=== PATIENT | female | born 1990 | race Caucasian/White ===

== ENCOUNTER 2017-01-27 21:36 | Emergency (ER) | payer MEDICARE ==
[~2017-01-27] VITALS: Ht 152.4 cm; Wt 77.1 kg
[2017-01-27 21:39] VITALS: BP 148/83
[2017-01-27] MEDS ORDERED: KETOROLAC 30 MG/ML VIAL IM ONE (22:45)
[2017-01-27 23:40] LABS: CALCIUM 9.2 mg/dL (8.5-10.1); CARBON DIOXIDE 27.5 mmol/L (21-32); CREATININE 0.7 mg/dL (0.6-1.3); POTASSIUM 3.5 mmol/L (3.5-5.1)
[2017-01-27] MEDS ORDERED: NACL 0.9% 1,000 ML IV ONE (23:50)
[2017-01-28 02:00] VITALS: BP 120/86
== END 2017-01-28 02:01 | disposition home or self-care (01) ==
LOC: MED 21:36
DX: R07.89 Other chest pain (principal)
CPT/HCPCS: 36415; 71010; 71275; 80048; 81025; 85379; 93005; 96360; 96361; 96372; 99285; J1885; J7030; Q9967

== ENCOUNTER 2018-06-29 09:34 | Emergency (ER) | payer BC, MEDICAID, MEDICARE ==
[~2018-06-29] VITALS: Ht 152.4 cm; Wt 76.2 kg
[2018-06-29 09:36] VITALS: BP 157/81
--- NOTE | 2018-06-29 09:42 | NUR ---
27 Y/F BIB SELF C/O RIGHT FOOT FUNGAL X 2 DAYS . PT STATES SHE PULLED OUT HER NAIL X 2 DAYS AND THENS WHEN IT GOT INFECTED. PMH: NONE RX: NONE
[2018-06-29 09:51] VITALS: BP 157/81
--- NOTE | 2018-06-29 09:51 | NUR ---
Patient discharged with v/s stable. Written and verbal after care instructions given and explained. Patient alert, oriented and verbalized understanding of instructions. Ambulatory with steady gait. All questions addressed prior to discharge. ID band removed. Patient advised to follow up with PMD. Rx of NYSTATIN CREAM, KEFLEX, BACTRIM given. Patient educated on indication of medication including possible reaction and side effects. Opportunity to ask questions provided and answered.
== END 2018-06-29 09:49 | disposition home or self-care (01) ==
LOC: MED 09:34
DX: L03.115 Cellulitis of right lower limb (principal); B35.3 Tinea pedis
CPT/HCPCS: 99283

== ENCOUNTER 2018-06-30 12:40 | Emergency (ER) | payer BC ==
[~2018-06-30] VITALS: Ht 152.4 cm; Wt 76.2 kg
--- NOTE | 2018-06-30 13:01 | NUR ---
PT AMBULATES TO BED 7
[2018-06-30 13:05] VITALS: BP 136/86
--- NOTE | 2018-06-30 13:06 | NUR ---
27 Y/O F PRESENTS W/C/O "I WAS HERE LAST NIGHT AND GIVEN TWO ANTIBITOICS, BACTRIM AND KEFLEX, I TOOK THEM BOTH LAST NIGHT AND DEVELOPED A RASH 20 MINS AFTER ON BILATERAL FEET." PT STATES SHE DID NOT TAKE THEM TODAY PER PHARMACY INSTRUCTION. PT STATES SHE IS JUST VERY ITCHY. PT WAS GIVEN ANTIBIOTICS FOR FUNGAL INFECTION OF HER FEET. AAOX4, PERRL, WITH EVEN AND STEADY GAIT; LUNGS CLEAR BL, BREATHING UNLABORED; HR EVEN AND REGULAR, BL PERIPHERAL PULSES PRESENT; PT DENIES ANY FEVER, CP, SOB, OR COUGH AT THIS TIME; PT STATES 0/10 PAIN AT THIS TIME; VSS; PATIENT POSITIONED FOR COMFORT; HOB ELEVATED; BEDRAILS UP X2; BED DOWN.
--- NOTE | 2018-06-30 13:16 | NUR ---
Patient being evaluated by physician at bedside.
[2018-06-30 13:55] VITALS: BP 129/85
--- NOTE | 2018-06-30 13:56 | NUR ---
Patient discharged with v/s stable. Written and verbal after care instructions given and explained. Patient alert, oriented and verbalized understanding of instructions. Ambulatory with steady gait. All questions addressed prior to discharge. ID band removed. Patient advised to follow up with PMD. Rx of BENADRYL given. Patient educated on indication of medication including possible reaction and side effects. Opportunity to ask questions provided and answered.
== END 2018-06-30 13:56 | disposition home or self-care (01) ==
LOC: MED 12:40
DX: B35.3 Tinea pedis (principal)
CPT/HCPCS: 99282

== ENCOUNTER 2022-06-24 13:31 | Emergency (ER) | payer BC, MEDICAID ==
[~2022-06-24] VITALS: Ht 152.4 cm; Wt 83.5 kg
[2022-06-24 13:33] VITALS: BP 123/77
--- NOTE | 2022-06-24 13:38 | NUR ---
PT AMBULATED TO LOBBY. URINE COLLECTED
--- NOTE | 2022-06-24 13:50 | NUR ---
31/F WALKED IN C/O LEFT SIDED ABD DISCOMFORT RADIATING TO LEFT FLANK ONSET 1WK. DENIES TRAUMA OR INJURY. DENIES NVD. DENIES URINARY S/SX. AAO4, AMBULATORY, VITALS STABLE PMH: DENIES
[2022-06-24 15:03] LABS: BASOPHILS % (AUTO) 0.4 % (0.0-2.0); EOSINOPHILS # (AUTO) 0.1 K/uL (0-0.4); EOSINOPHILS % (AUTO) 1.1 % (0.0-4.0); HEMATOCRIT 40.3 % (36-48); HEMOGLOBIN 13.4 g/dL (12.0-16.0); LYMPHOCYTES # (AUTO) 2.1 K/uL (2.5-16.5); LYMPHOCYTES % (AUTO) 28.5 % (20.5-51.1); MEAN CORPUSCULAR HEMOGLOBIN 27 pg (27-31); MEAN CORPUSCULAR HGB CONC 33 g/dL (33-37); MEAN CORPUSCULAR VOLUME 82.5 fL (80-94); MONOCYTES # (AUTO) 0.5 K/uL (0.8-1.0); MONOCYTES % (AUTO) 6.4 % (1.7-9.3); NEUTROPHILS # (AUTO) 4.7 K/uL (1.8-7.7); NEUTROPHILS % (AUTO) 63.6 % (42.2-75.2); PLATELET COUNT (AUTO) 361 K/uL (140-450); RED BLOOD CELL COUNT(AUTO) 4.88 MIL/uL (4.20-5.40); RED CELL DISTRIBUTION WIDTH 14.5 % (11.6-13.7); WHITE BLOOD COUNT (AUTO) 7.4 K/uL (4.8-10.8)
[2022-06-24 15:18] LABS: APPEARANCE,URINE BLOODY (CLEAR); BILIRUBIN,URINE NEGATIVE (NEGATIVE); BLOOD, URINE 3+ (NEGATIVE); LEUKOCYTE ESTERASE ,URINE TRACE (NEGATIVE); NITRITE, URINE NEGATIVE (NEGATIVE); PH,URINE 7.5 (5.0-9.0); UGLUCOSE NEGATIVE (NEGATIVE)
[2022-06-24 15:19] LABS: ANION GAP 10.9 (8-16); CREATININE 0.8 mg/dL (0.6-1.3); POTASSIUM 3.9 mmol/L (3.5-5.1)
[2022-06-24 15:29] LABS: ALBUMIN 4.4 g/dL (3.4-5.0); TOTAL BILIRUBIN 0.2 mg/dL (0.0-1.0)
[2022-06-24 15:31] LABS: COLOR,URINE RED (YELLOW)
[2022-06-24] MEDS ORDERED: CEPH-588 PO (16:04)
[2022-06-24 16:16] LABS: RBC,URINE TOO NUMEROUS TO COUN /HPF (0-5); WBC,URINE 0-5 /HPF (0-5)
[2022-06-24 16:20] VITALS: BP 126/62
== END 2022-06-24 16:20 | disposition home or self-care (01) ==
LOC: MED 13:31
DX: K80.20 Calculus of gallbladder without cholecystitis without obstruction (principal); N39.0 Urinary tract infection, site not specified
CPT/HCPCS: 36415; 71045; 76700; 80053; 81001; 83690; 84702; 85025; 99285